=== PATIENT | female | born 1965 | race Caucasian/White ===

== ENCOUNTER 2016-08-02 08:08 | Emergency (ER) | payer OTHER ==
[2016-08-02] MEDS ORDERED: Ibuprofen 200 MG TAB ONE (08:37)
[2016-08-02] MEDS ORDERED: HYDROcodone/Acetaminophen 10/325 mg Tablet ONE (08:37)
--- NOTE | 2016-08-02 08:50 | ERRECORD ---
[facility] EMERGENCY RECORD HPI GENERAL (08:36 JPIP) CHIEF COMPLAINT: Patient presents for evaluation of right lower lateral rib pain. HISTORIAN: History provided by patient. MECHANISM OF INJURY: Mechanism of injury fall. LOCATION: Symptoms are localized, most severe to right lateral lower ribs, No radiation to back, Pain has not moved in location over time. QUALITY: Pain is dull in nature. SEVERITY: Current severity of pain rated as 9/10. TIME COURSE: Gradual onset of symptoms, 2, days priror to arrival, There has been no change in the patient's symptoms over time, are constant. ASSOCIATED WITH: Associated with no SOB no cough no hemoptysis. EXACERBATED BY: Patient's condition exacerbated by deep breathing and touch. RELIEVED BY: Patient's condition relieved by nothing. ROS (08:38 JPIP) CARDIOVASCULAR: Historian reports chest pain, denies diaphoresis, denies dyspnea on exertion. RESPIRATORY: Historian denies cough, denies shortness of breath. GI: Historian denies nausea, denies vomiting. GENITOURINARY FEMALE: Historian denies hematuria. MUSCULOSKELETAL: Historian reports arthralgias. SKIN: Historian denies rash, denies skin changes, denies skin lesions. NOTES: All systems reviewed, negative except as described above. PAST MEDICAL HISTORY MEDICAL HISTORY: Past medical history includes gastrointestinal disease, hernia, Past medical history includes history of hyperlipidemia, HIGH POTASSIUM, GERD,. REVIEWED 217. (08:17 LGIB) FEMALE SURGICAL HISTORY: TRACH, Surgical history of hysterectomy. LUMPECTOMY Verified 17. (08:17 LGIB) PSYCHIATRIC HISTORY: Psychiatric history includes, bipolar disorder. REVIEWED 17. (08:17 LGIB) SOCIAL HISTORY: Patient denies drug use, Patient denies alcohol use, 1/2 pack per day. reviewed . REVIEWED 17. (08:17 LGIB) NOTES: Nursing records reviewed, Medication list reviewed. (08:39 JPIP) KNOWN ALLERGIES traZODone: Reaction: Hives, - "AND I STOP BREATHING" CURRENT MEDICATIONS (08:17 LGIB) None &a-1R&a+25V*p+0X*a0081C*c202B*c15G*c2P*p-0X&a-25V&a+1R Name: Jasmine Dunlap DOB: 1965 F50 MedRec: [id number] AcctNum: [id number] Prepared: SunAug 02, 2016 08:48 by Interface Page 1 of 3 pMD [facility] EMERGENCY RECORD VITAL SIGNS (08:17 LGIB) VITAL SIGNS: BP: 105/65, Pulse: 91, Resp: 16 (Non-Labored), Temp: 98.1 (Oral), Pain: 9, O2 sat: 99 on Room Air, Time: 08/02/2016 08:17. PHYSICAL EXAM (08:38 JPIP) CONSTITUTIONAL: Vital signs reviewed, Patient afebrile, Pulse normal, Blood pressure normal, Respiratory rate normal, Patient appears in pain, in moderate pain distress, Patient alert and oriented to person, place and time. HEAD: Head exam included findings of head atraumatic, normocephalic. EYES: Eye exam included findings of eyelids normal to inspection, Conjunctiva normal, Sclera normal, no periorbital ecchymosis, no periorbital edema, no periorbital erythema. NECK: Neck exam included findings of normal range of motion. RESPIRATORY CHEST: Respiratory exam included findings of no respiratory distress, Breath sounds clear, No wheezing, No rales, No rhonchi, Breath sounds not absent, Breath sounds not diminished, Tenderness, moderate, Palpation of chest reproduces symptoms, right lateral lower ribs. UPPER EXTREMITY: Upper extremity exam included findings of inspection normal, Range of motion normal. NEURO: [place] coma scale 15, Neuro exam findings include patient oriented to person, place and time. SKIN: Skin exam included findings of skin warm, dry, and normal in color. PSYCHIATRIC: Normal affect. RADIOLOGYINTERPRETATION (08:32 JPIP) CHEST: Films of the chest show, no infiltrate, no pneumothorax, no hemothorax, no pleural effusion, chronic obstructive pulmonary disease, Other findings: +DJD, +osteoporosis, No rib FX. NUCLEAR PHARMACIST: Preliminary review of x-rays by, ED Physician. MEDICATION ADMINISTRATION SUMMARY Drug Name: [place], Dose Ordered: 10 mg, Route: Oral, Status: Given, Time: 08:39 08/02/2016, Drug Name: Motrin, Dose Ordered: 600 mg, Route: Oral, Status: Given, Time: 08:38 08/02/2016, Detailed record available in Medication Service section. PROBLEM LIST No recorded problems DIAGNOSIS (08:36 JPIP) FINAL: PRIMARY: rib contusion, ADDITIONAL: COPD UNSPECIFIED, DJD. &a-1R&a+25V*p+0X*f8634P*c202B*c15G*c2P*p-0X&a-25V&a+1R Name: Jasmine Dunlap : 1965 0 MedRec: [id number] AcctNum: [id number] Prepared: SunAug 02, 2016 08:48 by Interface Page 2 of 3 pMD [facility] EMERGENCY RECORD PRESCRIPTION (08:33 JP) diclofenac oral: TABLET, DELAYED RELEASE (ENTERIC COATED) : 75 mg : ORAL : Quantity: 1 Unit: tab(s) Route: ORAL Schedule: 2 times a day (with meals) Dispense: 30 May substitute. Refills: No Refills . NOTES: as needed for pain No refills. Ultram: TABLET : 50 mg : ORAL : Quantity: 1-2 Unit: tab(s) Route: ORAL Schedule: every 8 hours PRN Dispense: 30 May substitute. Refills: No Refills . NOTES: for pain No refills. DISPOSITION PATIENT: Disposition Type: Discharge, Disposition: *Discharge Home, Condition: Good. (08:36 JPIP) Patient left the department. (08:45 LGIB) Cesar: MEENA=DO Hendrix Joseph LGIB=SERVANDO Owens, Che &a-1R&a+25V*p+0X*i8665T*c202B*c15G*c2P*p-0X&a-25V&a+1R Name: Jasmine Dunlap : 1965 0 MedRec: [id number] AcctNum: [id number] Prepared: SunAug 02, 2016 08:48 by Interface Page 3 of 3 pMD MTDD
--- NOTE | 2016-08-02 08:57 | PICIS ---
[facility] EMERGENCY RECORD TRIAGE (SunAug 02, 2016 08:16 LGIB) TRIAGE NOTES: "I fell up against a wall 2 days ago and now my ribs hurt". (SunAug 02, 2016 08:16 LGIB) PATIENT: NAME: Jasmine Dunlap, AGE: 50, GENDER: female, : Sat 1965, TIME OF GREET: SunAug 02, 2016 08:09, PREFERRED LANGUAGE: [place] Island[place], ETHNICITY: Not or , ECODE BILLING MAP: [facility], SSN: [id number], Zip Code: [address], KG WEIGHT: 52.16, PHONE: , , , PERSON ID: [id number], PAYMENT: X Medicaid, PCP: none. (SunAug 02, 2016 08:16 LGIB) COMPLAINT: right rib pain. (SunAug 02, 2016 08:16 LGIB) ADMISSION: URGENCY: 4 Non Urgent, ADMISSION SOURCE: Home, TRANSPORT: CAR, BED: ER -03. (SunAug 02, 2016 08:16 LGIB) SIRS SCORING: Heart Rate 55-109 (0), Temp range 96.8-101.1 (0), respiratory rate 12-24 (0), Mental Status altered: no (0), Total SIRS Score 0. (08:17 LGIB) PROVIDERS: TRIAGE NURSE: Che Owens RN. (SunAug 02, 2016 08:16 LGIB) KNOWN ALLERGIES traZODone: Reaction: Hives, - "AND I STOP BREATHING" CURRENT MEDICATIONS (08:17 LGIB) None VITAL SIGNS (08:17 LGIB) VITAL SIGNS: BP: 105/65, Pulse: 91, Resp: 16 (Non-Labored), Temp: 98.1 (Oral), Pain: 9, O2 sat: 99 on Room Air, Time: 08/02/2016 08:17. NURSING ASSESSMENT: RESPIRATORY /CHEST (08:20 LGIB) CONSTITUTIONAL: Complex assessment performed, Patient arrives ambulatory, Gait steady, History obtained from patient, Patient appears comfortable, Patient cooperative, Patient alert, Oriented to person, place and time, Skin warm, Skin dry, Skin normal in color, Mucous membranes pink, Mucous membranes moist, Patient is well-groomed, Patient complains of right sided rib pain. PAIN: tender pain, to the right lateral chest, on a scale 0-10 patient rates pain as 9, pain worse on palpation, Nothing has been tried to alleviate the pain. RESPIRATORY/CHEST: Breath sounds clear, Respiratory assessment findings include respiratory effort easy, Respirations regular, Conversing normally, Neck and chest exam findings include trachea midline, Chest expansion equal, Chest movement symmetrical, no signs of distress, no retractions noted, no cyanosis. SAFETY: Side rails up, Cart/Stretcher in lowest position, Call light within reach, Hospital ID band on. NURSING PROCEDURE: DISCHARGE NOTE (08:45 LGIB) DISCHARGE: Patient discharged to home, ambulating without &a-1R&a+25V*p+0X*g6026K*c202B*c15G*c2P*p-0X&a-25V&a+1R Name: Jasmine Dunlap : 1965 F50 MedRec: [id number] AcctNum: [id number] Prepared: SunAug 02, 2016 08:54 by Interface Page 1 of 5 pMD [facility] EMERGENCY RECORD assistance, friend driving, accompanied by friend, Summary of Care printed/ provided, Patient requested and was provided an electronic copy of Discharge Instructions, Discharge instructions given to patient, Simple or moderate discharge teaching performed, Prescriptions given and instructions on side effects given, Above person(s) verbalized understanding of discharge instructions and follow-up care, Patient treated and evaluated by physician. BELONGINGS: Belongings and valuables with patient at time of discharge include:, Belongings remain with patient, Valuables remain with patient. NURSING PROCEDURE: TRANSPORT TO TESTS (08:25 LGIB) TRANSPORT TO TESTS: Transport indicated to facilitate diagnosis, Patient transported to x-ray, ambulatory, Accompanied by x-ray residential service technician. ORDER DETAILS Order Name: XR Chest Pa & Lat STANDARD, Status: Active, Time: 08:17 08/02/2016, User: MEENA, - Ordered for: DO Hendrix Joseph, - Entered by: DO Hendrix Joseph - SunAug 02, 2016 08:17, - Quantity: 1. MEDICATION ADMINISTRATION SUMMARY Drug Name: [place], Dose Ordered: 10 mg, Route: Oral, Status: Given, Time: 08:39 08/02/2016, Drug Name: Motrin, Dose Ordered: 600 mg, Route: Oral, Status: Given, Time: 08:38 08/02/2016, Detailed record available in Medication Service section. MEDICATION SERVICE Motrin: Order: Motrin (ibuprofen) - Dose: 600 mg : Oral Schedule: Now Ordered by: Deep Hendrix DO Entered by: Deep Hendrix DO SunAug 02, 2016 08:33 , Acknowledged by: Che Owens RN SunAug 02, 2016 08:35 Documented as given by: Che Owens RN SunAug 02, 2016 08:38 Patient, Medication, Dose, Route and Time verified prior to administration. Site: Medication administered P.O., Correct patient, time, route, dose and medication confirmed prior to administration, Patient advised of actions and side-effects prior to administration, Allergies confirmed and medications reviewed prior to administration, Patient in position of comfort, Side rails up, Cart in lowest position. [place]: Order: [place] (hydrocodone bitartrate/acetaminophen) - Dose: 10 mg : Oral &a-1R&a+25V*p+0X*k6211L*c202B*c15G*c2P*p-0X&a-25V&a+1R Name: Jasmine Dunlap : 1965 F50 MedRec: [id number] AcctNum: [id number] Prepared: SunAug 02, 2016 08:54 by Interface Page 2 of 5 pMD [facility] EMERGENCY RECORD Schedule: Now Ordered by: Deep Hendrix DO Entered by: Deep Hendrix DO SunAug 02, 2016 08:33 , Acknowledged by: Che Owens RN SunAug 02, 2016 08:35 Documented as given by: Che Owens RN SunAug 02, 2016 08:39 Patient, Medication, Dose, Route and Time verified prior to administration. Site: Medication administered P.O., Correct patient, time, route, dose and medication confirmed prior to administration, Patient advised of actions and side-effects prior to administration, Allergies confirmed and medications reviewed prior to administration, Patient in position of comfort, Side rails up, Cart in lowest position. HPI GENERAL (08:36 JPIP) CHIEF COMPLAINT: Patient presents for evaluation of right lower lateral rib pain. HISTORIAN: History provided by patient. MECHANISM OF INJURY: Mechanism of injury fall. LOCATION: Symptoms are localized, most severe to right lateral lower ribs, No radiation to back, Pain has not moved in location over time. QUALITY: Pain is dull in nature. SEVERITY: Current severity of pain rated as 9/10. TIME COURSE: Gradual onset of symptoms, 2, days priror to arrival, There has been no change in the patient's symptoms over time, are constant. ASSOCIATED WITH: Associated with no SOB no cough no hemoptysis. EXACERBATED BY: Patient's condition exacerbated by deep breathing and touch. RELIEVED BY: Patient's condition relieved by nothing. ROS (08:38 JPIP) CARDIOVASCULAR: Historian reports chest pain, denies diaphoresis, denies dyspnea on exertion. RESPIRATORY: Historian denies cough, denies shortness of breath. GI: Historian denies nausea, denies vomiting. GENITOURINARY FEMALE: Historian denies hematuria. MUSCULOSKELETAL: Historian reports arthralgias. SKIN: Historian denies rash, denies skin changes, denies skin lesions. NOTES: All systems reviewed, negative except as described above. PAST MEDICAL HISTORY MEDICAL HISTORY: Past medical history includes gastrointestinal disease, hernia, Past medical history includes history of hyperlipidemia, HIGH POTASSIUM, GERD,. REVIEWED 08/02/16. (08:17 LGIB) FEMALE SURGICAL HISTORY: TRACH, Surgical history of &a-1R&a+25V*p+0X*r8608W*c202B*c15G*c2P*p-0X&a-25V&a+1R Name: Jasmine Dunlap : 1965 F50 MedRec: [id number] AcctNum: [id number] Prepared: SunAug 02, 2016 08:54 by Interface Page 3 of 5 pMD [facility] EMERGENCY RECORD hysterectomy. LUMPECTOMY Verified 08/02/16. (08:17 LGIB) PSYCHIATRIC HISTORY: Psychiatric history includes, bipolar disorder. REVIEWED 08/02/16. (08:17 LGIB) SOCIAL HISTORY: Patient denies drug use, Patient denies alcohol use, 1/2 pack per day. reviewed . REVIEWED 08/02/16. (08:17 LGIB) NOTES: Nursing records reviewed, Medication list reviewed. (08:39 JPIP) PHYSICAL EXAM (08:38 JPIP) CONSTITUTIONAL: Vital signs reviewed, Patient afebrile, Pulse normal, Blood pressure normal, Respiratory rate normal, Patient appears in pain, in moderate pain distress, Patient alert and oriented to person, place and time. HEAD: Head exam included findings of head atraumatic, normocephalic. EYES: Eye exam included findings of eyelids normal to inspection, Conjunctiva normal, Sclera normal, no periorbital ecchymosis, no periorbital edema, no periorbital erythema. NECK: Neck exam included findings of normal range of motion. RESPIRATORY CHEST: Respiratory exam included findings of no respiratory distress, Breath sounds clear, No wheezing, No rales, No rhonchi, Breath sounds not absent, Breath sounds not diminished, Tenderness, moderate, Palpation of chest reproduces symptoms, right lateral lower ribs. UPPER EXTREMITY: Upper extremity exam included findings of inspection normal, Range of motion normal. NEURO: [place] coma scale 15, Neuro exam findings include patient oriented to person, place and time. SKIN: Skin exam included findings of skin warm, dry, and normal in color. PSYCHIATRIC: Normal affect. EVENTS TRANSFER: Triage to Emergency Emergency Room -03. (SunAug 02, 2016 08:16 LGIB) Removed from Emergency Emergency Room -03. (08:45 LGIB) RADIOLOGYINTERPRETATION (08:32 JPIP) CHEST: Films of the chest show, no infiltrate, no pneumothorax, no hemothorax, no pleural effusion, chronic obstructive pulmonary disease, Other findings: +DJD, +osteoporosis, No rib FX. ASSEMBLER BONDING: Preliminary review of x-rays by, ED Physician. O2SAT INTERPRETATION (08:32 JPIP) O2SAT: Single pulse oximetry, Oxygen saturation 99%, on room air, Oxygen saturation interpretation: Normal, No intervention required. PROBLEM LIST &a-1R&a+25V*p+0X*h6314H*c202B*c15G*c2P*p-0X&a-25V&a+1R Name: Jasmine Dunlap : 1965 F50 MedRec: [id number] AcctNum: [id number] Prepared: SunAug 02, 2016 08:54 by Interface Page 4 of 5 pMD [facility] EMERGENCY RECORD No recorded problems DIAGNOSIS (08:36 JPIP) FINAL: PRIMARY: rib contusion, ADDITIONAL: COPD UNSPECIFIED, DJD. DISPOSITION PATIENT: Disposition Type: Discharge, Disposition: *Discharge Home, Condition: Good. (08:36 JPIP) Patient left the department. (08:45 LGIB) INSTRUCTION (08:35 JPIP) DISCHARGE: RIB CONTUSION. SPECIAL: Do not take motrin/ibuprofen/alleve/naprosyn while taking the diclofenac Follow up with Primary Care Physician within 72 hours Stop Smoking Return to the Emergency Department for increased symptoms problems or concerns. PRESCRIPTION (08:33 JPIP) diclofenac oral: TABLET, DELAYED RELEASE (ENTERIC COATED) : 75 mg : ORAL : Quantity: 1 Unit: tab(s) Route: ORAL Schedule: 2 times a day (with meals) Dispense: 30 May substitute. Refills: No Refills . NOTES: as needed for pain No refills. Ultram: TABLET : 50 mg : ORAL : Quantity: 1-2 Unit: tab(s) Route: ORAL Schedule: every 8 hours PRN Dispense: 30 May substitute. Refills: No Refills . NOTES: for pain No refills. IMAGING *DISCHARGE INSTRUCTIONS RECEIPT: Image captured from scanner. (08:45 LGIB) *SUPPLY CHARGE SHEET: Image captured from scanner. (08:46 LGIB) Cesar: MEENA=DO Hendrix Joseph LGIB=SERVANDO Owens, Che &a-1R&a+25V*p+0X*k5400G*c202B*c15G*c2P*p-0X&a-25V&a+1R Name: Jasmine Dunlap : 1965 F50 MedRec: [id number] AcctNum: [id number] Prepared: SunAug 02, 2016 08:54 by Interface Page 5 of 5 pMD MTDD
--- NOTE | 2016-08-02 16:42 | RAD ---
CHEST TWO VIEWS 08/02/16 Comparison is made with a 01/13/13 study. There has been no adverse interval change. The heart is normal in size. The mediastinum shows no wid ening or shift. The trachea is midline. The lungs are fully inflated and clear. There is no sign of pneumothorax or pleural effusion. No rib fractures were apparent. Mild osteophytes are seen in the t horacic spine. IMPRESSION: Stable exam showing no acute findings. Dedicated rib films might be more sensitive at showing more s ubtle fractures. POS: HOME
== END 2016-08-02 08:44 | disposition home or self-care (01) ==
LOC: BURERS 08:08
DX: S20.211A Contusion of right front wall of thorax, initial encounter (principal); J44.9 Chronic obstructive pulmonary disease, unspecified; M19.90 Unspecified osteoarthritis, unspecified site; E78.5 Hyperlipidemia, unspecified; K21.9 Gastro-esophageal reflux disease without esophagitis; W19.XXXA Unspecified fall, initial encounter; F31.9 Bipolar disorder, unspecified
CPT/HCPCS: 71020; 99283

== ENCOUNTER 2016-09-11 17:44 | Emergency (ER) | payer OTHER ==
[2016-09-11] MEDS ORDERED: Sulfameth/Trimethoprim DS 800-160mg TAB ONE (18:11)
== END 2016-09-11 18:25 | disposition home or self-care (01) ==
LOC: BURERS 17:44
DX: L02.512 Cutaneous abscess of left hand (principal); L02.511 Cutaneous abscess of right hand; K21.9 Gastro-esophageal reflux disease without esophagitis; E78.5 Hyperlipidemia, unspecified; J44.9 Chronic obstructive pulmonary disease, unspecified; F31.9 Bipolar disorder, unspecified; F17.210 Nicotine dependence, cigarettes, uncomplicated
CPT/HCPCS: 87070; 87077; 87186; 87205; 99283

== ENCOUNTER 2017-09-05 09:50 | Emergency (ER) | payer OTHER ==
[2017-09-05] MEDS ORDERED: Ketorolac Tromethamine 60 MG/2 ML VIAL ONE (10:11)
[2017-09-05] MEDS ORDERED: predniSONE 20 MG TAB ONE ×2 (10:11→10:13)
== END 2017-09-05 10:20 | disposition home or self-care (01) ==
LOC: BURERS 09:50
DX: R60.0 Localized edema (principal); E78.5 Hyperlipidemia, unspecified; J44.9 Chronic obstructive pulmonary disease, unspecified; F31.9 Bipolar disorder, unspecified; F17.210 Nicotine dependence, cigarettes, uncomplicated
CPT/HCPCS: 96372; J1885; J7506

== ENCOUNTER 2023-01-09 15:06 | Outpatient (CLI) | payer OTHER | END 2023-01-09 15:07 | disposition home or self-care (01) | LOC: BURRAD 15:06 | PROVIDERS: ATTEND Family Medicine | DX: J44.1 Chronic obstructive pulmonary disease with (acute) exacerbation (principal) | CPT/HCPCS: 71046 ==

== ENCOUNTER 2024-04-21 12:03 | Emergency (ER) | payer OTHER ==
[2024-04-21 12:26] LABS: #Eosinophils 0.1 thou/uL (0.0-0.7); #Lymphocytes 1.1 thou/uL (1.20-3.40); #Monocytes 0.2 thou/uL (0.11-0.59); #Neutrophils 2.6 thou/uL (1.40-6.50); %Eosinophils 1.4 % (0.0-10.0); %Lymphocytes 26.8 % (21.0-51.0); %Monocytes 4.3 % (0.0-10.0); %Neutrophils 66.6 % (42.0-75.0); Hematocrit 44.8 % (36.0-47.0); Hemoglobin 14.7 g/dL (12.0-16.0); Mean Corpuscular HGB CONC 32.7 g/dL (32.0-36.0); Mean Corpuscular Hemoglobin 28.8 pg (27.0-31.0); Platelet Count 184 10x3/uL (130-400); Red Blood Cell (RBC) Count 5.09 mill/uL (4.20-5.40)
[2024-04-21] MEDS ORDERED: Nitroglycerin 0.4 MG TAB 1 EACH ONE (12:43)
[2024-04-21] MEDS ORDERED: Dexamethasone 10 MG/ML VIAL ONE (12:43)
[2024-04-21] MEDS ORDERED: Ipratropium/Albuterol 3 ML NEB ONE (12:43)
[2024-04-21] MEDS ORDERED: Aspirin Chewable 81 MG TAB ONE (12:44)
[2024-04-21 12:47] LABS: ALT (SGPT) 17 U/L (8-55); AST (SGOT) 15 U/L (5-34); Albumin 3.8 g/dL (3.5-5.0); Alkaline Phosphatase 75 U/L (40-110); Anion Gap 13 mmol/L (10-20); BUN (Urea Nitrogen) 13 mg/dL (9.8-20.1); Bilirubin, Total 0.3 mg/dL (0.2-1.2); Calc. Creatinine Clearance 0 mL/min (70-130); Calcium 9.5 mg/dL (7.8-10.44); Carbon Dioxide 24 mmol/L (22-29); Chloride 108 mmol/L (98-107); Estimated GFR 82; Globulin 3.8 g/dL (2.4-3.5); Glucose 223 mg/dL (70-105); Potassium 3.8 mmol/L (3.5-5.1); Protein, Total 7.6 g/dL (6.0-8.3); Sodium 141 mmol/L (136-145)
== END 2024-04-21 16:00 | disposition short-term general hospital (02) ==
LOC: BURERS 12:03
DX: J44.9 Chronic obstructive pulmonary disease, unspecified (principal); I25.2 Old myocardial infarction; F17.210 Nicotine dependence, cigarettes, uncomplicated; Z55.6 Problems related to health literacy
CPT/HCPCS: 71045; 80053; 83880; 84484; 85025; 93005; J1100; J7620

== ENCOUNTER 2024-05-17 08:29 | Emergency (ER) | payer OTHER ==
[2024-05-17] MEDS ORDERED: traMADol HCl 50 MG TAB ONE (09:35)
== END 2024-05-17 09:41 | disposition home or self-care (01) ==
LOC: BURERS 08:29
DX: S62.616A Displaced fracture of proximal phalanx of right little finger, initial encounter for closed fracture (principal); J44.9 Chronic obstructive pulmonary disease, unspecified; I25.2 Old myocardial infarction; F17.210 Nicotine dependence, cigarettes, uncomplicated; W54.1XXA Struck by dog, initial encounter
CPT/HCPCS: 99283

== ENCOUNTER 2025-06-17 08:58 | Outpatient (CLI) | payer MEDICAID | END 2025-06-17 08:59 | disposition home or self-care (01) | LOC: BURCT 08:58 | PROVIDERS: ATTEND Nurse Practitioner Family | DX: M54.6 Pain in thoracic spine (principal); R91.1 Solitary pulmonary nodule; R91.8 Other nonspecific abnormal finding of lung field | CPT/HCPCS: 71250 ==